=== PATIENT | female | born 1995 | race Caucasian/White ===

== ENCOUNTER 2016-11-02 00:14 | Emergency (ER) | payer OTHER ==
[~2016-11-02] VITALS: Ht 165.1 cm; Wt 62.5 kg
[2016-11-02 00:19] VITALS: Ht 165.1 cm; Wt 62.5 kg
[2016-11-02] MEDS ORDERED: KETOROLAC 60 MG INJ IM STA (00:47)
[2016-11-02] MEDS ORDERED: HYDROCODONE/APAP (5/325) TAB PO ONE (01:00)
--- NOTE | 2016-11-02 01:04 | ERD ---
ER Documentation Chief Complaint Date/Time DATE: 11/02/16 TIME: 01:01 Chief Complaint left back pain x 4 days after carring heavy box. denies urinary symptoms HPI 21-year-old female presents to emergency department for complaints of left lower back pain after picking up a heavy box 4 days ago. Patient describes the pain as sharp pain, 8/10 scale, worse upon movement accompanied with muscle spasms. Patient did not take any medications up and symptoms. Patient denies any incontinence. Patient denies any fever or chills. Patient denies hematuria or dysuria. Patient denies any nausea or vomiting. Patient denies abdominal pain. ROS All systems reviewed and are negative except as per history of present illness. Medications Home Meds Reported Medications [none] Unknown Strength No Conflict Check 11/02/16 Allergies Allergies: Coded Allergies: No Known Allergy (Unverified , 11/02/16) PMhx/Soc Medical and Surgical Hx: pt denies Medical Hx, pt denies Surgical Hx FmHx Family History: No coronary disease, No diabetes, No other Physical Exam Vitals Vital Signs Date Time Temp Pulse Resp B/P Pulse Ox O2 Delivery O2 Flow Rate FiO2 11/02/16 00:19 98.1 66 18 129/61 99 Physical Exam GENERAL: The patient is well developed and appropriate for usual state of health, in no apparent distress. CHEST: Clear to auscultation bilaterally. There are no rales, wheezes or rhonchi. HEART: Regular rate and rhythm. No murmurs, clicks, rubs or gallops. No S3 or S4. ABDOMEN: Soft, nontender and nondistended. Good bowel sounds. No rebound or guarding. No gross peritonitis. No gross organomegaly or masses. No Au sign or McBurney point tenderness. BACK: No midline or flank tenderness. Muscle spasms noted in the left paraspinal aspect of the lumbar spine, full range of motion without any restriction. EXTREMITIES: Equal pulses bilaterally. There is no peripheral clubbing, cyanosis or edema. No focal swelling or erythema. Full range of motion. Grossly neurovascularly intact. NEURO: Alert and oriented. Cranial nerves 2-12 intact. Motor strength in all 4 extremities with 5/5 strength. Sensation grossly intact. Normal speech and gait. SKIN: There is no apparent rash or petechia. The skin is warm and dry. HEMATOLOGIC AND LYMPHATIC: There is no evidence of excessive bruising or lymphedema. No gross cervical, axillary, or inguinal lymphadenopathy. Results 24 hrs Laboratory Tests Test 11/02/16 01:11 Bedside Urine pH (LAB) 5.5 Bedside Urine Protein (LAB) Negative Bedside Urine Glucose (UA) Negative Bedside Urine Ketones (LAB) Negative Bedside Urine Blood Trace-lysed Bedside Urine Nitrite (LAB) Negative Bedside Urine Leukocyte Esterase (L Negative Current Medications Medications (Trade) Dose Ordered Sig/Bonita Route PRN Reason Start Time Stop Time Status Last Admin Dose Admin Ketorolac Tromethamine (Toradol) 60 mg ONCE STAT IM 11/02/16 00:47 11/02/16 00:48 DC 11/02/16 01:10 Acetaminophen/ Hydrocodone Bitart (Blandford (5/325)) 1 tab ONCE ONCE PO 11/02/16 01:00 11/02/16 01:01 DC 11/02/16 01:10 Patient was given medication for pain here in emergency department, after treatment, patient verbalized feeling much better. Patient's pain is improved. Procedures/MDM Medical Decision Making: Patient's pain is most likely consistent with a back strain. There is no suspicion for neurovascular compromise. Patient has intact sensation and circulation of the affected extremity and distal extremities. No incontinence, no suspicion for cauda equina syndrome, no saddle anesthesia, no symptoms of any acute bacterial infection, no symptoms of any perirectal abscesses, pilonidal cyst.There is low suspicion for septic arthritis. Patient does not have any fever. No symptoms of any aortic dissection or aortic aneurysm. Radiology exam not indicated at this time. Disposition: Home. Patient is given prescription for ibuprofen for mild to moderate pain, Blandford for severe pain, Flexeril for muscle spasm. Patient was advised to avoid heavy lifting , apply warm compresses on affected area. Patient was advised that if symptoms are worse, numbness, tingling, high fever, unable to move joint, worsening symptoms, to return to emergency department immediately. Otherwise, patient is advised to follow up with the primary care doctor in 5-7 days for reevaluation of symptoms. Departure Diagnosis: Primary Impression: Back pain Back pain location: low back pain Chronicity: acute Back pain laterality: left Sciatica presence: without sciatica Qualified Code: M54.5 - Acute left- sided low back pain without sciatica Condition: Stable Patient Instructions: Back Pain (Acute Or Chronic) Additional Instructions: Patient is given prescription for ibuprofen for mild to moderate pain, Blandford for severe pain, Flexeril for muscle spasm. Patient was advised to avoid heavy lifting , apply warm compresses on affected area. Patient was advised that if symptoms are worse, numbness, tingling, high fever, unable to move joint, worsening symptoms, to return to emergency department immediately. Otherwise, patient is advised to follow up with the primary care doctor in 5-7 days for reevaluation of symptoms. KATHRIN COLBY NP Nov 02, 2016 01:04
[2016-11-02 01:08] LABS: URINE BLOOD (Dip) POC Trace-lysed (NEGATIVE)
[2016-11-02] MEDS ORDERED: HYDR-906 PO (01:41)
[2016-11-02] MEDS ORDERED: CYCL-319 PO (01:41)
[2016-11-02] MEDS ORDERED: IBUP-1542 PO (01:41)
[2016-11-02 02:00] VITALS: BP 110/54; PULSE 55; RESP 18; TEMP 98.1
== END 2016-11-02 02:00 | disposition home or self-care (01) ==
LOC: FTE 00:14
DX: M54.5 Low back pain (principal)
CPT/HCPCS: 81003; J1885; Z7610; 96372

== ENCOUNTER 2017-05-09 22:15 | Emergency (ER) | payer OTHER ==
[~2017-05-09] VITALS: Ht 154.9 cm; Wt 65.0 kg
[~2017-05-09 22:15] MED LIST: CYCL-319 PO; HYDR-906 PO; IBUP-1542 PO
[2017-05-09 22:20] VITALS: Ht 154.9 cm; Wt 65.0 kg
--- NOTE | 2017-05-10 00:26 | ERD ---
ER Documentation Chief Complaint Chief Complaint n/v for a week HPI n/v x 10 days, , pt reports feeling better after vomiting, bu symptoms return, pt was in [place] with symptoms started and had a evaluation , results pending, pt was nt prescribed medicine , LMP 25 last months ROS All systems reviewed and are negative except as per history of present illness. Medications Home Meds Active Scripts Ibuprofen* (Motrin*) 600 Mg Tab, 600 MG PO Q6H Y for PAIN AND OR ELEVATED TEMP, #30 TAB Prov:KATHRIN COLBY VICE PRESIDENT MEDIA RELATIONS 11/02/16 Cyclobenzaprine Hcl* (Cyclobenzaprine Hcl*) 10 Mg Tablet, 10 MG PO TID, #15 TAB Prov:KATHRIN COLBY VICE PRESIDENT MEDIA RELATIONS 11/02/16 Hydrocodone/Acetaminophen ([place] 5-325 Tablet) 1 Each Tablet, 1 TAB PO Q6H Y for SEVERE PAIN LEVEL 7-10, #20 TAB Prov:KATHRIN COLBY NP 11/02/16 Reported Medications [none] Unknown Strength No Conflict Check 11/02/16 Allergies Allergies: Coded Allergies: No Known Allergy (Unverified , 11/02/16) PMhx/Soc Medical and Surgical Hx: pt denies Medical Hx, pt denies Surgical Hx Hx Alcohol Use: No Hx Substance Use: No Hx Tobacco Use: No Smoking Status: Never smoker Physical Exam Vitals Vital Signs Date Time Temp Pulse Resp B/P Pulse Ox O2 Delivery O2 Flow Rate FiO2 05/09/17 22:20 98.9 75 16 114/58 98 VSS Physical Exam Const: Well-nourished well-appearing 21-year-old female in no acute distress Head: Atraumatic Eyes: Normal Conjunctiva ENT: Normal External Ears, Nose and Mouth. Neck: Full range of motion..~ No meningismus. Resp: Clear to auscultation bilaterally Cardio: Regular rate and rhythm, no murmurs Abd: Soft, symmetric, epigastric tenderness Skin: No petechiae or rashes Back: No midline or flank tenderness Ext: No cyanosis, or edema Neur: Awake and alert Psych: Normal Mood and Affect Result Diagram: 05/10/17 0040 05/10/17 0040 Results 24 hrs Laboratory Tests Test 05/10/17 00:40 White Blood Count 15.010^3/ul Red Blood Count 5.2010^6/ul Hemoglobin 15.7g/dl Hematocrit 45.7% Mean Corpuscular Volume 87.9fl Mean Corpuscular Hemoglobin 30.2pg Mean Corpuscular Hemoglobin Concent 34.4g/dl Red Cell Distribution Width 12.0% Platelet Count 39916^3/UL Mean Platelet Volume 10.1fl Neutrophils % 84.8% Lymphocytes % 9.1% Monocytes % 5.5% Eosinophils % 0.1% Basophils % 0.2% Nucleated Red Blood Cells % 0.0/100WBC Neutrophils # 12.710^3/ul Lymphocytes # 1.410^3/ul Monocytes # 0.810^3/ul Eosinophils # 0.010^3/ul Basophils # 0.010^3/ul Nucleated Red Blood Cells # 0.010^3/ul Urine Color HERMAN Urine Clarity CLEAR Urine pH 6.0 Urine Specific [place] 1.027 Urine Ketones NEGATIVEmg/dL Urine Nitrite NEGATIVEmg/dL Urine Bilirubin NEGATIVEmg/dL Urine Urobilinogen 2+mg/dL Urine Leukocyte Esterase TRACELeu/ul Urine Microscopic RBC 1/HPF Urine Microscopic WBC 6/HPF Urine Squamous Epithelial Cells FEW/HPF Urine Bacteria FEW/HPF Urine Mucus FEW/HPF Urine Hemoglobin NEGATIVEmg/dL Urine Glucose NEGATIVEmg/dL Urine Total Protein NEGATIVEmg/dl Sodium Level 143mmol/L Potassium Level 3.7mmol/L Chloride Level 103mmol/L Carbon Dioxide Level 28mmol/L Anion Gap 16 Blood Urea Nitrogen 18mg/dl Creatinine 0.75mg/dl Glucose Level 98mg/dl Calcium Level 9.9mg/dl Total Bilirubin 1.9mg/dl Direct Bilirubin 0.00mg/dl Indirect Bilirubin 1.9mg/dl Aspartate Amino Transf (AST/SGOT) 225IU/L Alanine Aminotransferase (ALT/SGPT) 127IU/L Alkaline Phosphatase 77IU/L Total Protein 7.7g/dl Albumin 4.4g/dl Globulin 3.30g/dl Albumin/Globulin Ratio 1.33 Lipase 120U/L Current Medications Medications (Trade) Dose Ordered Sig/Bonita Route PRN Reason Start Time Stop Time Status Last Admin Dose Admin Pantoprazole (Protonix Tab) 40 mg ONCE ONCE PO 05/10/17 00:30 05/10/17 00:31 DC 05/10/17 00:40 Al Hydrox/Mg Hydrox/Simethicone (Mag-Al Plus) 30 ml ONCE ONCE PO 05/10/17 00:30 05/10/17 00:31 DC 05/10/17 00:40 Interpretation text CBC shows no evidence of hemorrhage or infection WBCs are elevated, this is an insignificant finding, elevation related to stress response from vomiting. Chemistry shows no evidence of significant electrolyte abnormalities or renal insufficiency Liver function tests shows no evidence of acute biliary or hepatic dysfunction Lipase shows no evidence of acute pancreatitis Procedures/MDM PROCEDURE: ULTRASOUND LIMITED ABDOMEN CLINICAL INDICATION: 21-year-old female with abdominal pain. TECHNIQUE: Multiple sonographic of the right upper quadrant of the abdomen were obtained. The images were reviewed on a PACS workstation. COMPARISON: None. FINDINGS: The pancreas is partially visualized and is otherwise without abnormal echogenicity. The liver displays normal echogenicity. The liver measures 13.3 cm in length. No evidence of intrahepatic biliary ductal dilatation is seen. The portal and hepatic veins are unremarkable. The gallbladder contains multiple mobile shadowing stones. The gallbladder wall thickness is within normal limits measuring 2.3 mm. No pericholecystic fluid is seen. The common bile duct measures 4.1 mm and is not dilated. The right kidney displays normal echogenicity. The right kidney measures 9.4 cm in length. There is mild prominence of the right renal collecting system without eileen hydronephrosis. No free fluid is seen. IMPRESSION: 1. Cholelithiasis. 2. Mild prominence of the right renal collecting system without eileen hydronephrosis. Electronically viewed and signed by .Simon Barclay MD, on 05/10/2017 01:59 This 21-year-old female presents to emergency department for evaluation of nausea, vomiting, epigastric pain. Patient states she does eat spicy food, symptoms started while she was visiting her father in [place] patient states she had a evaluation done in [place] but did not get test results because she came home. Today patient reports that she is vomited twice, has had unintentional weight loss 6 pounds noted in [place] in today she has lost an additional pound. She denies possibility of , last menstrual period was the 22nd of last month. Emergency room course includes history and physical exam, CAT scan with radiologist impression of Guerda lithiasis, mild prominence to the right renal collecting system without eileen hydronephrosis, serology unremarkable, urinalysis shows trace leukocytosis without microscopic hematuria or nitrates, findings are unlikely to be related to a bacterial infection, plan to discharge patient home with pain medication, nausea medication, lifestyle modifications, instructed to stop eating red meat, a perfect diet would be a vegan diet that she can eat chicken, avoid cheese, start taking a teaspoon of brags apple cider vinegar nightly. Patient is stable with no new complaints during ER course, clinically there is no current evidence to suggest meningitis, sepsis, acute abdomen, acute coronary syndromes , pulmonary embolism or any other emergent condition appearing to require further evaluation or hospitalization. I feel the patient is stable for discharge at this time. I have discussed results, examination findings, the treatment plan with the patient and family present prior to discharge. Indications for emergent reevaluation, side effects of medication were also discussed. All questions were answered. Patient verbalizes understanding and agrees with plan of care. Departure Diagnosis: Primary Impression: Gallstone Cholecystitis presence: with cholecystitis Cholecystitis acuity: unspecified acuity Biliary obstruction: with biliary obstruction Qualified Code: K80.01 - Calculus of gallbladder with cholecystitis with biliary obstruction, unspecified cholecystitis acuity Condition: Good Patient Instructions: Gallstones, Treating Gallstones, What Are Gallstones? Additional Instructions: Thank you for for coming to the [facility] for your care today. Please ask your nurse or provider if you have questions about your care today and do not leave until all your questions have been answered. Please use any medications given as directed and follow-up with your doctor (or the doctor you were referred to) in the next 2-3 days. If you do not have a primary care doctor you may follow up at the [facility] (listed below). You may also use motrin and tylenol as needed for fever and/or pain unless instructed otherwise by your provider or nurse. Indications for more urgent follow-up have been discussed, but you may return to the Emergency Department at ANY time for any worrisome or worsening symptoms. If you have abdominal pain, please know that no test or exam you received is perfect and you should follow up within 8 hours for continued pain. If you had any imaging studies today, such as an X-Ray or CT Scan, these studies will be reviewed later by a radiologist. You will be called if there are important findings that were not identified today, so make sure the contact information you provided at registration is correct. If you received any narcotic pain control medicine today, such as Vicodin, Morphine or Dilaudid, your coordination and judgment may be affected for a number of hours. Please do not drive or operate heavy machinery, and you may want someone to assist you at home. If you were given a prescription for narcotic medication, be aware that it is very addictive- use sparingly and only if necessary. MEGAN MCDERMOTT May 10, 2017 00:26
[2017-05-10] MEDS ORDERED: AL HYDROX/MG HYDROX/SIMETH 30 ML CUP PO ONE (00:30)
[2017-05-10] MEDS ORDERED: PANTOPRAZOLE (EC) 40 MG TAB PO ONE (00:30)
[2017-05-10 01:55] LABS: BASOPHILS % 0.2 % (0.0-2.0); EOSINOPHILS % 0.1 % (0.0-7.0); HEMATOCRIT 45.7 % (37.0-47.0); HEMOGLOBIN 15.7 g/dl (12.0-16.0); LYMPHOCYTES # 1.4 10^3/ul (0.8-2.9); LYMPHOCYTES % 9.1 % (15.0-51.0); MEAN CORPUSCULAR HEMOGLOBIN 30.2 pg (29.0-33.0); MEAN CORPUSCULAR HGB CONC 34.4 g/dl (32.0-37.0); MEAN CORPUSCULAR VOLUME 87.9 fl (82.0-101.0); MEAN PLATELET VOLUME 10.1 fl (7.4-10.4); MONOCYTE # 0.8 10^3/ul (0.3-0.9); MONOCYTES % 5.5 % (0.0-11.0); NEUTROPHIL # 12.7 10^3/ul (1.6-7.5); NEUTROPHILS % 84.8 % (39.0-77.0); PLATELET COUNT 344 10^3/UL (140-415)
--- NOTE | 2017-05-10 01:59 | RADRPT ---
PROCEDURE: ULTRASOUND LIMITED ABDOMEN CLINICAL INDICATION: 21-year-old female with abdominal pain. TECHNIQUE: Multiple sonographic of the right upper quadrant of the abdomen were obtained. The imag es were reviewed on a PACS workstation. COMPARISON: None. FINDINGS: The pancreas is partially visualized and is otherwise without abnormal echogenicity. The liver displays normal echogenicity. The liver measures 13.3 cm in length. No evidence of intrah epatic biliary ductal dilatation is seen. The portal and hepatic veins are unremarkable. The gallbladder contains multiple mobile shadowing stones. The gallbladder wall thickness is within normal limits measuring 2.3 mm. No pericholecystic fluid is seen. The common bile duct measures 4.1 mm and is not dilated. The right kidney displays normal echogenicity. The right kidney measures 9.4 cm in length. There is mild prominence of the right renal collecting system without eileen hydronephrosis. No free fluid is seen. IMPRESSION: 1. Cholelithiasis. 2. Mild prominence of the right renal collecting system without eileen hydronephrosis. .Simon Barclay MD, Date Time Electronically viewed and signed by .Simon Barclay MD, on 05/10/2017 01:59 .M/
[2017-05-10 02:08] LABS: ADD UMIC YES; UR ASCORBIC ACID 40 mg/dL (NEGATIVE); UR BACTERIA FEW /HPF (NONE SEEN); UR BILIRUBIN (Dip) NEGATIVE (NEGATIVE); UR BLOOD (Dip) NEGATIVE (NEGATIVE); UR CLARITY CLEAR (CLEAR); UR COLOR AMBER (YELLOW); UR GLUCOSE (Dip) NEGATIVE (NEGATIVE); UR KETONES (Dip) NEGATIVE (NEGATIVE); UR LEUKOCYTE ESTERASE (Dip) TRACE Leu/ul (NEGATIVE); UR MUCUS FEW /HPF (NONE SEEN); UR NITRITE (Dip) NEGATIVE (NEGATIVE); UR RBC 1 /HPF (0-5); UR SPECIFIC GRAVITY (Dip) 1.027 (1.003-1.030); UR SQUAMOUS EPITHELIAL CELL FEW /HPF (FEW); UR TOTAL PROTEIN (Dip) NEGATIVE (NEGATIVE); UR UROBILINOGEN (Dip) 2+ mg/dL (NEGATIVE)
[2017-05-10 02:27] LABS: ALBUMIN 4.4 g/dl (3.3-4.9); ALBUMIN/GLOBULIN RATIO 1.33; BILIRUBIN,INDIRECT 1.9 mg/dl (0-1.1); BILIRUBIN,TOTAL 1.9 mg/dl (0.2-1.3); CALCIUM 9.9 mg/dl (8.4-10.2); CREATININE 0.75 mg/dl (0.44-1.00); POTASSIUM 3.7 mmol/L (3.5-5.1); TOTAL PROTEIN 7.7 g/dl (6.1-8.1)
[2017-05-10] MEDS ORDERED: ONDA4TAB14 PO (03:44)
[2017-05-10] MEDS ORDERED: HYDR-906 PO (03:44)
[2017-05-10 03:55] VITALS: BP 115/64; PULSE 68; RESP 16
== END 2017-05-10 03:56 | disposition home or self-care (01) ==
LOC: FTE 22:15
DX: K80.01 Calculus of gallbladder with acute cholecystitis with obstruction (principal)
CPT/HCPCS: 36415; 76705; 80053; 81001; 83690; 85025; Z7502; Z7610

== ENCOUNTER 2017-09-14 19:23 | Emergency (ER) | END 2017-09-15 01:51 | disposition left against medical advice (07) ==

== ENCOUNTER 2018-01-20 12:56 | Emergency (ER) | END 2018-01-20 13:50 | disposition left against medical advice (07) ==

== ENCOUNTER 2018-05-13 18:03 | Emergency (ER) | payer OTHER ==
[~2018-05-13] VITALS: Ht 165.1 cm; Wt 71.6 kg
[~2018-05-13 18:03] MED LIST changes: -CYCL-319 PO; +CYCL10TA7 PO; +HYDR-4011 PO; -HYDR-906 PO; +OMEP40CA6 PO; +ONDA4TAB14 PO
[2018-05-13 18:07] VITALS: Ht 165.1 cm; Wt 71.6 kg
[2018-05-13] MEDS ORDERED: morphine 4 MG/ML VIAL IV STA (19:12)
[2018-05-13] MEDS ORDERED: SOD CHLORIDE 0.9% 1,000 ML IV STA (19:12)
[2018-05-13] MEDS ORDERED: ONDANSETRON 4 MG INJ IV STA (19:12)
[2018-05-13] MEDS ORDERED: NAPR-985 PO (21:31)
[2018-05-13] MEDS ORDERED: ONDA4TAB14 PO (21:31)
[2018-05-13 21:52] VITALS: BP 106/65; PULSE 60; RESP 20
--- NOTE | 2018-05-14 00:03 | ERD ---
ER Documentation Chief Complaint Chief Complaint Complains of abdominal pain Hx of gall stones HPI This patient is a 22-year-old female with past medical history of gallstones presenting to the emergency department complaining of constant, 8/10 severity, sharp, midepigastric pain for the past 1 day. She took Tylenol without relief. She has had some mild vomiting which is nonbilious and nonbloody. ROS All systems reviewed and are negative except as per history of present illness. Medications Home Meds Active Scripts Naproxen* (Naprosyn*) 500 Mg Tablet, 500 MG PO BID PRN for PAIN AND/OR INFLAMMATION, #30 TAB Prov:ARELY HESTER PA-C 05/13/18 Ondansetron (Ondansetron Odt) 4 Mg Tab.rapdis, 4 MG PO Q6H PRN for NAUSEA AND/OR VOMITING, #10 TAB Prov:ARELY HESTER PA-C 05/13/18 Omeprazole* (Omeprazole*) 40 Mg Capsule.dr, 40 MG PO DAILY, #10 CAP Prov:SHARRON,MEGAN 09/15/17 Hydrocodone/Acetaminophen ([place] 5-325 Tablet) 1 Each Tablet, 1 TAB PO Q6H PRN for PAIN, #7 TAB Prov:SHARRON,MEGAN 09/15/17 Ondansetron (Ondansetron Odt) 4 Mg Tab.rapdis, 4 MG PO Q6H PRN for NAUSEA AND/OR VOMITING, #10 TAB Prov:SHARRON,MEGAN 05/10/17 Hydrocodone/Acetaminophen ([place] 5-325 Tablet) 1 Each Tablet, 1 TAB PO Q6H PRN for PAIN, #20 TAB Prov:SHARRON,MEGAN 05/10/17 Ibuprofen* (Motrin*) 600 Mg Tab, 600 MG PO Q6H PRN for PAIN AND OR ELEVATED TEMP, #30 TAB Prov:KATHRIN COLBY NP 11/02/16 Cyclobenzaprine Hcl* (Cyclobenzaprine Hcl*) 10 Mg Tablet, 10 MG PO TID, #15 TAB Prov:KATHRIN COLBY NP 11/02/16 Hydrocodone/Acetaminophen ([place] 5-325 Tablet) 1 Each Tablet, 1 TAB PO Q6H PRN for SEVERE PAIN LEVEL 7-10, #20 TAB Prov:KATHRIN COLBY NP 11/02/16 Reported Medications [none] Unknown Strength No Conflict Check 11/02/16 Allergies Allergies: Coded Allergies: No Known Allergy (Unverified , 11/02/16) PMhx/Soc History of Surgery: No Anesthesia Reaction: No Hx Neurological Disorder: No Hx Respiratory Disorders: No Hx Cardiac Disorders: No Hx Psychiatric Problems: No Hx Miscellaneous Medical Probl: Yes (Gallstones) Hx Alcohol Use: No Hx Substance Use: No Hx Tobacco Use: No FmHx Family History: No diabetes Physical Exam Vitals Vital Signs Date Temp Pulse Resp B/P (MAP) Pulse Ox O2 O2 Flow FiO2 Time Delivery Rate 05/13/18 98.0 60 20 106/65 96 Room Air 21:52 (79) 05/13/18 98.5 78 20 118/75 97 18:07 (89) Physical Exam Const: No acute distress Head: Atraumatic Eyes: Normal Conjunctiva ENT: Normal External Ears, Nose and Mouth. Neck: Full range of motion. No meningismus. Resp: Clear to auscultation bilaterally Cardio: Regular rate and rhythm, no murmurs Abd: Soft, mild tenderness to palpation in the midepigastrium in the right upper quadrant, no true Au sign, no McBurney's point tenderness, no rebound tenderness or guarding, non distended. Normal bowel sounds Skin: No petechiae or rashes Back: No midline or flank tenderness Ext: No cyanosis, or edema Neur: Awake and alert Psych: Normal Mood and Affect Result Diagram: 05/13/18192405/13/181924 Results 24 hrs Laboratory Tests Test 05/13/18 19:20 05/13/18 19:25 05/13/18 19:29 Urine Color YELLOW Urine Clarity CLOUDY Urine pH 9.0 Urine Specific [place] 1.027 Urine Ketones NEGATIVE mg/dL Urine Nitrite NEGATIVE mg/dL Urine Bilirubin NEGATIVE mg/dL Urine Urobilinogen 2+ mg/dL Urine Leukocyte Esterase TRACE Sarah/ul Urine Microscopic RBC 5 /HPF Urine Microscopic WBC 8 /HPF Urine Squamous Epithelial Cells FEW /HPF Urine Mucus MODERATE /HPF Urine Hemoglobin NEGATIVE mg/dL Urine Glucose NEGATIVE mg/dL Urine Total Protein 1+ mg/dl White Blood Count 11.3 10^3/ul Red Blood Count 5.14 10^6/ul Hemoglobin 15.2 g/dl Hematocrit 44.9 % Mean Corpuscular Volume 87.4 fl Mean Corpuscular Hemoglobin 29.6 pg Mean Corpuscular 33.9 g/dl Hemoglobin Concent Red Cell Distribution Width 11.9 % Platelet Count 364 10^3/UL Mean Platelet Volume 9.7 fl Immature Granulocytes % 0.300 % Neutrophils % 78.9 % Lymphocytes % 13.6 % Monocytes % 6.7 % Eosinophils % 0.1 % Basophils % 0.4 % Nucleated Red Blood Cells % 0.0 /100WBC Immature Granulocytes # 0.030 10^3/ul Neutrophils # 8.9 10^3/ul Lymphocytes # 1.5 10^3/ul Monocytes # 0.8 10^3/ul Eosinophils # 0.0 10^3/ul Basophils # 0.0 10^3/ul Nucleated Red Blood Cells # 0.0 10^3/ul Prothrombin Time 13.2 Sec Prothrombin Time Ratio 1.0 INR International 0.99 Normalized Ratio Activated Partial Thromboplast 25.2 Sec Time Sodium Level 142 mmol/L Potassium Level 3.7 mmol/L Chloride Level 101 mmol/L Carbon Dioxide Level 30 mmol/L Anion Gap 11 Blood Urea Nitrogen 15 mg/dl Creatinine 0.59 mg/dl Est Glomerular Filtrat > 60 mL/min Rate mL/min Glucose Level 91 mg/dl Calcium Level 9.6 mg/dl Total Bilirubin 1.5 mg/dl Direct Bilirubin 0.00 mg/dl Indirect Bilirubin 1.5 mg/dl Aspartate Amino 206 IU/L Transf (AST/SGOT) Alanine 87 IU/L Aminotransferase (ALT/SGPT) Alkaline Phosphatase 100 IU/L Total Protein 8.2 g/dl Albumin 4.6 g/dl Globulin 3.60 g/dl Albumin/Globulin Ratio 1.27 Lipase 100 U/L POC Beta HCG, Qualitative NEGATIVE Current Medications Medications Dose Sig/Bonita Start Time Status Last (Trade) Ordered Route PRN Stop Time Admin Dose Reason Admin Sodium 1,000 ml @ Q1H STAT 05/13/18 DC 05/13/18 Chloride 1,000 mls/hr IV 19:12 19:31 05/13/18 20:11 Morphine 4 mg ONCE STAT 05/13/18 DC 05/13/18 Sulfate IV 19:12 19:35 (morphine) 05/13/18 19:15 Ondansetron 4 mg ONCE STAT 05/13/18 DC 05/13/18 HCl (Zofran IV 19:12 19:31 Inj) 05/13/18 19:15 [place] [id number] Radiology Main Line: [phone] DIAGNOSTIC IMAGING REPORT Patient: BRENT CHARLES : 1995 Age: 22 Sex: F MR #: [id number] DOS: 05/13/18 1912 Ordering MD: ARELY HESTER PA-C Location: [facility] Room/Bed: PROCEDURE: US Abdomen Right Upper Quadrant. CLINICAL INDICATION: Abdominal pain TECHNIQUE: Multiple real-time longitudinal and transverse images were acquired of the patient's right upper quadrant abdomen utilizing a curved array transducer. COMPARISON: 05/10/2017 FINDINGS: Liver: The liver is normal in size with the sagittal diameter of the right lobe measuring 13.4 cm. The liver is normal in echotexture no focal lesion is evident. There is normal directional flow of the main portal vein. Gallbladder: There is cholelithiasis. The gallbladder wall is not thickened. Bile ducts: There is no significant intra or extrahepatic bile duct dilatation. No choledocholiths are seen within the visualized portions. The common bile duct measures 2.9 mm in cross diameter. Pancreas: The pancreas is largely obscured by bowel gas. Right kidney: Appears small measuring 8.9 cm in sagittal diameter. No mass, pa thological calcification, or hydronephrosis is evident. Peritoneum: There is no free intraperitoneal fluid IMPRESSION: 1. Since the previous study, there is again cholelithiasis not associated with gallbladder wall thickening or bile duct dilatation. 2. The pancreas is obscured by bowel gas. 3. The right kidney appears smaller than seen previously measured at 8.9 cm in length. There is no intra renal calcification, mass, or hydronephrosis. 4. Otherwise, unremarkable sonogram of the right upper quadrant of the abdomen. Physician Jena Date Time Electronically viewed and signed by Physician Jena on 05/13/2018 19:58 RH/ CC: MIRIVISARELYEHSAN Waterman PA-C [id number] Procedures/MDM ER COURSE: 22-year-old female presenting to the emergency department complaining of midepigastric pain and vomiting. Patient was placed in a stretcher and administered IV fluids, IV Zofran, IV morphine with good response. On reevaluation she was significantly improved. Patient remained hemodynamically stable under my direct care with no new complaints during her ED course. LABS: CBC: no e/o of systemic infection or severe anemia CMP: no e/o severe acidosis, alkalosis, renal failure, diabetic ketoacidosis, liver disease. Patient did have mild transaminitis. Lipase: no e/o pancreatitis Urine: no e/o acute infection or hematuria IMAGING: Gallbladder ultrasound showed cholelithiasis without evidence of cholecystitis o r common bile duct dilatation. MEDICAL DECISION MAKING: Patient symptoms are most consistent with biliary colic. Other differential diagnoses included but were not limited to acute surgical abdomen, acute cholecystitis, esophageal varices, GERD, diverticulitis, urinary tract infection, mesenteric ischemia, toxic megacolon, and others. No obvious evidence of emergent or life threatening pathology. Patient will be discharged home with prescriptions to treat her symptoms as an outpatient. The patient agreed with the diagnosis, plan, need for follow-up, return precautions. Pt/family advised to return immediately with any new or worsening symptoms. Follow-up with primary care physician within the next 1-2 days. I did discuss this patient's case with attending ED physician, Dr. Rebecca Giron, who reviewed the patient's laboratory studies and workup and agreed with the assessment, pl an, overall ED course. She recommended close follow-up with general surgeon as an outpatient. I did discuss this with the patient in length and she was in agreement and her questions and concerns were addressed prior to discharge. Disclaimer: Inadvertent spelling and grammatical errors are likely due to EHR/dictation software use and do not reflect on the overall quality of patient care. Also, please note that the electronic time recorded on this note does not necessarily reflect the actual time of the patient encounter. Departure Diagnosis: Primary Impression: Biliary colic Condition: Fair Patient Instructions: Biliary Colic With Gallstone (Confirmed) Additional Instructions: Call your primary care doctor TOMORROW for an appointment during the next 1-2 days.See the doctor sooner or return here if your condition worsens before your appointment time. ARELY HESTER PA-C May 14, 2018 00:03
== END 2018-05-13 21:53 | disposition home or self-care (01) ==
LOC: FTE 18:03
DX: K80.50 Calculus of bile duct without cholangitis or cholecystitis without obstruction (principal)
CPT/HCPCS: 36415; 76705; 80053; 81001; 81025; 83690; 85025; 85610; 85730; 96374; 96375; J2270; J2405; J7030; Z7502

== ENCOUNTER 2018-09-15 09:48 | Emergency (ER) | payer OTHER ==
[~2018-09-15] VITALS: Ht 160 cm; Wt 76.0 kg
[~2018-09-15 09:48] MED LIST changes: +NAPR-985 PO
[2018-09-15 09:50] VITALS: BP 118/74; PULSE 64; RESP 18; Ht 160 cm; Wt 76.0 kg
[2018-09-15] MEDS ORDERED: ONDANSETRON (ODT) 4 MG TAB ODT STA (11:23)
[2018-09-15] MEDS ORDERED: KETOROLAC 30 MG INJ IM STA (11:23)
[2018-09-15] MEDS ORDERED: ACET-141 PO (14:03)
[2018-09-15] MEDS ORDERED: IBUP-1542 PO (14:03)
[2018-09-15] MEDS ORDERED: ONDA4TAB14 PO (14:03)
--- NOTE | 2018-09-15 14:08 | ERD ---
ER Documentation Chief Complaint Chief Complaint ABDOMINAL PAIN AND NAUSEA TODAY, HX GALLSTONES HPI 23-year-old female presents for epigastric abdominal pain x3 hours. There is associated nausea. Patient does have a history of gallstones. She denies fevers or chills but denies vomiting or diarrhea. She states that her pain is 1 0 out of 10, described as sharp, nonradiating. No treatments tried at home. No other modifying factors noted. ROS All systems reviewed and are negative except as per history of present illness. Medications Home Meds Active Scripts Ondansetron (Ondansetron Odt) 4 Mg Tab.rapdis, 4 MG PO Q6H PRN for NAUSEA AND/OR VOMITING, #10 TAB Prov:RADHA GERMAIN DO 09/15/18 Acetaminophen* (Acetaminophen*) 500 MG Extra Strength Tablet, 500 MG PO Q4H PRN for PAIN AND OR ELEVATED TEMP, #30 TAB Prov:RADHA GERMAIN DO 09/15/18 Ibuprofen* (Motrin*) 600 Mg Tab, 600 MG PO Q6, #30 TAB Prov:RADHA GERMAIN DO 09/15/18 Naproxen* (Naprosyn*) 500 Mg Tablet, 500 MG PO BID PRN for PAIN AND/OR INFLAMMATION, #30 TAB Prov:ARELY HESTER PA-C 05/13/18 Ondansetron (Ondansetron Odt) 4 Mg Tab.rapdis, 4 MG PO Q6H PRN for NAUSEA AND/OR VOMITING, #10 TAB Prov:ARELY HESTER PA-C 05/13/18 Omeprazole* (Omeprazole*) 40 Mg Capsule.dr, 40 MG PO DAILY, #10 CAP Prov:SHARRON,MEGAN 09/15/17 Hydrocodone/Acetaminophen ([place] 5-325 Tablet) 1 Each Tablet, 1 TAB PO Q6H PRN for PAIN, #7 TAB Prov:SHARRON,MEGAN 09/15/17 Ondansetron (Ondansetron Odt) 4 Mg Tab.rapdis, 4 MG PO Q6H PRN for NAUSEA AND/OR VOMITING, #10 TAB Prov:SHARRON,MEGAN 05/10/17 Hydrocodone/Acetaminophen ([place] 5-325 Tablet) 1 Each Tablet, 1 TAB PO Q6H PRN for PAIN, #20 TAB Prov:SHARRON,MEGAN 05/10/17 Ibuprofen* (Motrin*) 600 Mg Tab, 600 MG PO Q6H PRN for PAIN AND OR ELEVATED TEMP, #30 TAB Prov:KATHRIN COLBY NP 11/02/16 Cyclobenzaprine Hcl* (Cyclobenzaprine Hcl*) 10 Mg Tablet, 10 MG PO TID, #15 TAB Prov:KATHRIN COLBY NP 11/02/16 Hydrocodone/Acetaminophen ([place] 5-325 Tablet) 1 Each Tablet, 1 TAB PO Q6H PRN for SEVERE PAIN LEVEL 7-10, #20 TAB Prov:KATHRIN COLBY NP 11/02/16 Reported Medications [none] Unknown Strength No Conflict Check 11/02/16 Allergies Allergies: Coded Allergies: No Known Allergy (Unverified , 11/02/16) PMhx/Soc Medical and Surgical Hx: pt denies Surgical Hx History of Surgery: No Anesthesia Reaction: No Hx Neurological Disorder: No Hx Respiratory Disorders: No Hx Cardiac Disorders: No Hx Psychiatric Problems: No Hx Miscellaneous Medical Probl: Yes (Gallstones) Hx Alcohol Use: Yes (occasional) Hx Substance Use: Yes (marijuana) Hx Tobacco Use: Yes Smoking Status: Current every day smoker Physical Exam Vitals Vital Signs Date Temp Pulse Resp B/P (MAP) Pulse Ox O2 O2 Flow FiO2 Time Delivery Rate 09/15/18 98.4 64 18 118/74 98 09:50 (89) Physical Exam Const: No acute distress Resp: Clear to auscultation bilaterally Cardio: Regular rate and rhythm, no murmurs Abd: Soft, non distended. Normal bowel sounds, mild epigastric tenderness palpation, no McBurney's point tenderness, no Au sign, no rebound or guarding noted Skin: No petechiae or rashes Back: No midline or flank tenderness Ext: No cyanosis, or edema Neur: Awake and alert Psych: Normal Mood and Affect Result Diagram: 09/15/18 1137 09/15/18 1137 Results 24 hrs Laboratory Tests Test 09/15/18 11:36 09/15/18 11:37 09/15/18 11:53 Urine Color YELLOW Urine Clarity SLIGHTLY CLOUDY Urine pH 5.0 Urine Specific [place] 1.026 Urine Ketones NEGATIVE mg/dL Urine Nitrite NEGATIVE mg/dL Urine Bilirubin NEGATIVE mg/dL Urine Urobilinogen NEGATIVE mg/dL Urine Leukocyte Esterase NEGATIVE Sarah/ul Urine Microscopic RBC 0 /HPF Urine Microscopic WBC 2 /HPF Urine Squamous Epithelial Cells FEW /HPF Urine Mucus MODERATE /HPF Urine Hemoglobin NEGATIVE mg/dL Urine Glucose NEGATIVE mg/dL Urine Total Protein NEGATIVE mg/dl White Blood Count 12.2 10^3/ul Red Blood Count 5.20 10^6/ul Hemoglobin 15.4 g/dl Hematocrit 45.2 % Mean Corpuscular Volume 86.9 fl Mean Corpuscular Hemoglobin 29.6 pg Mean Corpuscular 34.1 g/dl Hemoglobin Concent Red Cell Distribution Width 12.3 % Platelet Count 317 10^3/UL Mean Platelet Volume 9.7 fl Immature Granulocytes % 0.700 % Neutrophils % 88.8 % Lymphocytes % 7.9 % Monocytes % 2.4 % Eosinophils % 0.0 % Basophils % 0.2 % Nucleated Red Blood Cells % 0.0 /100WBC Immature Granulocytes # 0.080 10^3/ul Neutrophils # 10.8 10^3/ul Lymphocytes # 1.0 10^3/ul Monocytes # 0.3 10^3/ul Eosinophils # 0.0 10^3/ul Basophils # 0.0 10^3/ul Nucleated Red Blood Cells # 0.0 10^3/ul Sodium Level 141 mmol/L Potassium Level 4.2 mmol/L Chloride Level 106 mmol/L Carbon Dioxide Level 25 mmol/L Anion Gap 10 Blood Urea Nitrogen 15 mg/dl Creatinine 0.58 mg/dl Est Glomerular Filtrat > 60 mL/min Rate mL/min Glucose Level 115 mg/dl Calcium Level 9.9 mg/dl Total Bilirubin 0.5 mg/dl Direct Bilirubin 0.00 mg/dl Indirect Bilirubin 0.5 mg/dl Aspartate Amino 25 IU/L Transf (AST/SGOT) Alanine 28 IU/L Aminotransferase (ALT/SGPT) Alkaline Phosphatase 82 IU/L Total Protein 7.9 g/dl Albumin 4.4 g/dl Globulin 3.50 g/dl Albumin/Globulin Ratio 1.25 Lipase 55 U/L POC Beta HCG, Qualitative NEGATIVE Current Medications Medications Dose Sig/Bonita Start Time Status Last (Trade) Ordered Route PRN Stop Time Admin Dose Reason Admin Ondansetron 4 mg ONCE STAT 09/15/18 DC 09/15/18 HCl (Zofran ODT 11:23 12:09 Odt) 09/15/18 11:24 Ketorolac 30 mg ONCE STAT 09/15/18 DC 09/15/18 Tromethamine IM 11:23 12:09 (Toradol) 09/15/18 11:24 Procedures/MDM Medical Decision Making: Differential diagnosis includes but not limited to acute gastritis, acute gastroenteritis, appendicitis, cholecystitis, pancreatitis, nephrolithiasis Patient appeared well on physical exam. Nontoxic appearing. ED course: Patient was given Zofran and Toradol. Symptoms improved with treatment. Labs: CBC showed no severe anemia, WBC mildly elevated at 12 CMP showed no electrolyte abnormalities, there was normal kidney and liver function Lipase was normal Urine was negative UA was negative for infection Imaging: Abdominal ultrasound showed cholecystitis with no evidence of cholecystitis Patient likely has biliary colic Prescription(s): Patient given prescription for supportive medications . Given this is the patient's second episode of biliary colic she is advised to follow with primary care physician for referral to general surgery for elective cholecystectomy if she desires. Patient advised to follow up with PCP in 1-2 days. Patient advised to return to ED for new or worsening symptoms. Patient stable on discharge from the ED. Disclaimer: Inadvertent spelling and grammatical errors are likely due to EHR/dictation software use and do not reflect on the overall quality of patient care. Also, please note that the electronic time recorded on this note does not necessarily reflect the actual time of the patient encounter. Departure Diagnosis: Primary Impression: Biliary colic Condition: Fair Patient Instructions: Biliary Colic With Gallstone (Confirmed) Additional Instructions: Call your primary care doctor TOMORROW for an appointment during the next 1-2 days.See the doctor sooner or return here if your condition worsens before your appointment time. Take tylenol first for pain as needed Take motrin only if tylenol does not work Recommend outpatient referral to general surgery RADHA GERMAIN DO Sep 15, 2018 14:08
== END 2018-09-15 14:20 | disposition home or self-care (01) ==
LOC: FTE 09:48
DX: K80.51 Calculus of bile duct without cholangitis or cholecystitis with obstruction (principal); F17.210 Nicotine dependence, cigarettes, uncomplicated
CPT/HCPCS: 36415; 76705; 80053; 81001; 81025; 83690; 85025; 96372; J1885; Z7502; Z7610; 81003